=== PATIENT | female | born 1955 | race Hispanic/Latino ===

== ENCOUNTER 2017-06-27 16:48 | Inpatient (IN) | payer SELFPAY ==
[~2017-06-27] VITALS: Ht 162.6 cm; Wt 54.2 kg
[2017-06-27 17:26] LABS: APPEARANCE,URINE CLEAR (CLEAR); BILIRUBIN,URINE NEGATIVE (NEGATIVE); GLUCOSE, URINE (UA) NEGATIVE (NEGATIVE); KETONES,URINE NEGATIVE (NEGATIVE); LEUKOCYTE ESTERASE ,URINE MODERATE (NEGATIVE); NITRATE,URINE NEGATIVE (NEGATIVE); OCCULT BLOOD,URINE TRACE-INTACT (NEGATIVE); PROTEIN,URINE NEGATIVE (NEGATIVE); UROBILINOGEN,URINE 0.2 mg/dL (0.2-1.0)
[2017-06-27 17:27] LABS: COLOR,URINE Straw (YELLOW)
[2017-06-27 17:28] LABS: BASOPHILS % (AUTO) 0.3 % (0.0-5.0); EOSINOPHILS % (AUTO) 0.1 % (0.0-8.0); HEMATOCRIT 41.8 % (36-48); LYMPHOCYTES % (AUTO) 7.1 % (21.0-51.0); MEAN CORPUSCULAR HEMOGLOBIN 33.4 pg (27.0-33.0); MEAN CORPUSCULAR HGB CONC 34.7 g/dL (32.0-36.0); MEAN CORPUSCULAR VOLUME 96.2 fL (79-99); MONOCYTES % (AUTO) 1.9 % (3.0-13.0); NEUTROPHILS % (AUTO) 90.6 % (40.0-77.0); PLATELET COUNT (AUTO) 248 K/uL (130-400); RED BLOOD CELL COUNT(AUTO) 4.35 MIL/uL (4.00-5.50); RED CELL DISTRIBUTION WIDTH 13.3 % (11.0-15.5); WHITE BLOOD COUNT (AUTO) 10.8 K/uL (4.8-10.8)
[2017-06-27 17:42] LABS: CREATININE 0.8 mg/dL (0.5-1.5)
[2017-06-27 17:48] LABS: ALBUMIN 4.3 g/dL (3.5-5.0); BILIRUBIN,TOTAL 0.3 mg/dL (0.2-1.0); TOTAL PROTEIN, SERUM 7.9 g/dL (6.0-8.3)
[2017-06-27] MEDS ORDERED: LIDOCAINE HCL 2% VISCOUS 15 ML UDCUP ONE (18:14)
[2017-06-27] MEDS ORDERED: MAGNESIUM HYDROXIDE 30 ML/UDCUP ONE (18:14)
[2017-06-27] MEDS ORDERED: FAMOTIDINE/PF 20 MG/2 ML VIAL IV ONE (18:14)
[2017-06-27] MEDS ORDERED: ONDANSETRON HCL 4 MG/2 ML VIAL ONE (18:27)
[2017-06-27] MEDS ORDERED: MORPHINE SULFATE 4 MG/1ML SYG ONE (18:28)
[2017-06-27 18:40] LABS: BACTERIA,URINE Few /HPF (None Seen); RBC,URINE 0-1 /HPF (0-1); SQUAMOUS EPITHELIAL CELL,UR Few /LPF (0-2)
[2017-06-27] MEDS ORDERED: SODIUM CHLORIDE 0.9% 1000ML 1,000 ML IV ONE (22:04)
[2017-06-28] VITALS (7 sets, daily range): BP systolic 126–143; BP diastolic 64–83
[2017-06-28] MEDS ORDERED: ONDANSETRON HCL 4 MG/2 ML VIAL IVP PRN (00:45)
[2017-06-28] MEDS ORDERED: HYDRALAZINE HCL 20 MG/ML VIAL IV PRN (00:45)
[2017-06-28] MEDS ORDERED: ACETAMINOPHEN 325 MG TAB PO PRN (00:45)
[2017-06-28] MEDS ORDERED: MORPHINE SULFATE 2 MG/ML 1ML SYG IV PRN (00:45)
[2017-06-28] MEDS: CEFTRIAXONE 1GM/D5W 50ML 50 ML IV SCH ×2 (00:45→23:59)
[2017-06-28] MEDS ORDERED: POTASSIUM CHLORIDE 10% ELIXIR 20 MEQ/15 ML UDCUP PO PRN (01:00)
[2017-06-28] MEDS ORDERED: LIDOCAINE HCL-MPF 1% 2ML VIAL IVP PRN (01:00)
[2017-06-28] MEDS ORDERED: POTASSIUM CHLORIDE 20 MEQ ERTAB PO PRN (01:00)
[2017-06-28] MEDS: SODIUM CHLORIDE 0.9% 1000ML 1,000 ML IV SCH ×2 (01:44→07:02)
[2017-06-28] MEDS: POTASSIUM CHLORIDE 20MEQ/100ML 100 ML IV PRN ×2 (01:46→06:57)
[2017-06-28] MEDS ORDERED: CEFTRIAXONE SODIUM 1 GM ONE (01:56)
[2017-06-28] MEDS: DEXTROSE 5%-LACTATED RINGERS 1,000 ML IV SCH ×2 (10:43→19:43)
[2017-06-28] MEDS: FAMOTIDINE/PF 20 MG/2 ML VIAL IV SCH ×2 (10:43→20:30)
[2017-06-29] MEDS: DEXTROSE 5%-LACTATED RINGERS 1,000 ML IV SCH ×3 (03:59→18:16)
[2017-06-29 04:53] VITALS: BP 131/79
[2017-06-29] MEDS ORDERED: CEFTRIAXONE SODIUM 1 GM ONE (05:10)
[2017-06-29] MEDS: CEFTRIAXONE SODIUM 1 GM IVP SCH (05:19)
[2017-06-29 05:49] LABS: HEMATOCRIT 38.3 % (36-48); MEAN CORPUSCULAR VOLUME 97.2 fL (79-99); PLATELET COUNT (AUTO) 203 K/uL (130-400); RED BLOOD CELL COUNT(AUTO) 3.94 MIL/uL (4.00-5.50); RED CELL DISTRIBUTION WIDTH 13.1 % (11.0-15.5); WHITE BLOOD COUNT (AUTO) 7.2 K/uL (4.8-10.8)
[2017-06-29 05:57] LABS: BAND NEUTROPHILS % (MANUAL) 9 % (0-2); LYMPHOCYTES % (MANUAL) 18 % (22-44); MAN.DIFF COMMENT-IMPRESSION MANUAL DIFFERENTIAL; PLATELET MORPHOLOGY COMMENT ADEQUATE; SEGMENTED NEUTROPHILS % 73 % (40-70)
[2017-06-29 06:03] LABS: ALBUMIN 3.3 g/dL (3.5-5.0); BILIRUBIN,TOTAL 0.3 mg/dL (0.2-1.0); CREATININE 0.7 mg/dL (0.5-1.5); POTASSIUM 3.9 mmol/L (3.5-5.1); TOTAL PROTEIN, SERUM 6.8 g/dL (6.0-8.3)
[2017-06-29 08:01] VITALS: BP 131/74
[2017-06-29] MEDS: FAMOTIDINE/PF 20 MG/2 ML VIAL IV SCH ×2 (09:04→19:38)
[2017-06-29 11:32] VITALS: BP 135/66
[2017-06-29 16:53] VITALS: BP 143/71
[2017-06-29 20:12] VITALS: BP 132/74
[2017-06-30 00:12] VITALS: BP 128/69
[2017-06-30] MEDS: DEXTROSE 5%-LACTATED RINGERS 1,000 ML IV SCH ×2 (03:36→10:08)
[2017-06-30 03:38] VITALS: BP 122/76
[2017-06-30 08:00] VITALS: BP 136/80
[2017-06-30] MEDS: CEFTRIAXONE SODIUM 1 GM IVP SCH (10:07)
[2017-06-30] MEDS: FAMOTIDINE/PF 20 MG/2 ML VIAL IV SCH (10:08)
[2017-06-30 11:19] VITALS: BP 124/62
[2017-06-30] MEDS ORDERED: CEFD300C3 PO (11:25)
[2017-06-30 16:00] VITALS: BP 128/76
== END 2017-06-30 16:10 | disposition home or self-care (01) | DRG 439 ==
LOC: EDH 16:48 → EDHIP 16:49 → 4CH 23:10 → UNDODEPER 06-28 00:21
PROVIDERS: ADMIT Family Medicine; ATTEND Family Medicine
DX: K85.90 Acute pancreatitis without necrosis or infection, unspecified (principal); N39.0 Urinary tract infection, site not specified; A05.9 Bacterial foodborne intoxication, unspecified; E87.6 Hypokalemia
CPT/HCPCS: 36415; 74176; 76705; 76856; 80053; 80061; 81001; 82150; 83690; 84132; 85025; A4218; J0696; J2270; J2405; J3480; J3490; J7030

== ENCOUNTER 2022-07-14 11:55 | Emergency (ER) | payer MEDICARE ==
[~2022-07-14] VITALS: Ht 154.9 cm; Wt 54.0 kg
[~2022-07-14 11:55] MED LIST: CEFD300C3 PO
[2022-07-14 12:25] VITALS: BP 117/58
[2022-07-14 13:40] LABS: BASOPHILS % (AUTO) 0.3 % (0.0-5.0); EOSINOPHILS % (AUTO) 1.2 % (0.0-8.0); HEMATOCRIT 40.5 % (36-48); LYMPHOCYTES % (AUTO) 21.8 % (21.0-51.0); MEAN CORPUSCULAR HEMOGLOBIN 32.6 pg (27.0-33.0); MEAN CORPUSCULAR HGB CONC 33.3 g/dL (32.0-36.0); MEAN CORPUSCULAR VOLUME 97.8 fL (79-99); MONOCYTES % (AUTO) 5.9 % (3.0-13.0); NEUTROPHILS % (AUTO) 70.6 % (40.0-77.0); PLATELET COUNT (AUTO) 249 K/uL (130-400); RED BLOOD CELL COUNT(AUTO) 4.14 MIL/uL (4.00-5.50); RED CELL DISTRIBUTION WIDTH 14.6 % (11.0-15.5); WHITE BLOOD COUNT (AUTO) 6.5 K/uL (4.8-10.8)
[2022-07-14 13:57] LABS: CREATININE 0.6 mg/dL (0.5-1.5); POTASSIUM 4.2 mmol/L (3.5-5.1)
[2022-07-14] MEDS ORDERED: 0.9%NACL 1000ML 1,000 ML IV ONE (14:00)
[2022-07-14] MEDS ORDERED: ACETAMINOPHEN 325 MG TAB PO ONE (14:00)
[2022-07-14] MEDS ORDERED: ONDANSETRON 4MG INJ IVP ONE (14:00)
[2022-07-14 14:02] LABS: ALBUMIN 3.7 g/dL (3.5-5.0); TOTAL PROTEIN, SERUM 7.4 g/dL (6.0-8.3)
[2022-07-14] MEDS ORDERED: DICY20TA2 PO (16:12)
[2022-07-14] MEDS ORDERED: PANT40TA54 PO (16:12)
[2022-07-14] MEDS ORDERED: ONDA-104 PO (16:12)
[2022-07-14] MEDS ORDERED: AMOX-426 PO (16:12)
[2022-07-14] MEDS ORDERED: ACET-66 PO (16:12)
== END 2022-07-14 16:49 | disposition home or self-care (01) ==
LOC: EDH 11:55
DX: K52.9 Noninfective gastroenteritis and colitis, unspecified (principal); N39.0 Urinary tract infection, site not specified
CPT/HCPCS: 99285; 74177; 96374; 96361; 80053; 83690; 85025; 36415; J7030; J2405

== ENCOUNTER 2023-10-29 19:38 | Emergency (ER) | payer MEDICARE ==
[~2023-10-29] VITALS: Ht 157.5 cm; Wt 47.2 kg
[~2023-10-29 19:38] MED LIST changes: +ACET-66 PO; +AMOX-426 PO; +DICY20TA2 PO; +ONDA-104 PO; +PANT40TA54 PO
[2023-10-29] MEDS: HYDROCODONE/ACETAMINOPHEN 5/325 MG TAB PO ONE (20:33)
[2023-10-29 21:20] VITALS: BP 156/79; PULSE 99; RESP 20; O2SAT 98
== END 2023-10-29 22:00 | disposition home or self-care (01) ==
LOC: EDH 19:38
DX: S63.294A Dislocation of distal interphalangeal joint of right ring finger, initial encounter (principal); F03.90 Unspecified dementia, unspecified severity, without behavioral disturbance, psychotic disturbance, mood disturbance, and anxiety; Z79.899 Other long term (current) drug therapy; W18.39XA Other fall on same level, initial encounter; Y93.89 Activity, other specified; Y92.89 Other specified places as the place of occurrence of the external cause; Y99.8 Other external cause status
CPT/HCPCS: 26770; 73120